=== PATIENT | male | born 1985 | race Caucasian/White ===

== ENCOUNTER 2017-10-01 19:25 | Emergency (ER) | payer BC ==
[2017-10-01] MEDS ORDERED: Diphtheria,Pertussis(Acell),Tetanus Vaccine 0.5 ML SDV IM ONE (19:50)
[2017-10-01] MEDS ORDERED: Bacitracin Oint 15 GM Tube TOP ONE (20:57)
--- NOTE | 2017-10-01 21:02 | EDM.PDOC ---
ED HPI GENERAL MEDICAL PROBLEM - General Chief Complaint: Skin Complaint Stated Complaint: CUT ON FOOT Time Seen by Provider: 10/01/17 20:55 Source of Information: Reports: Patient History Limitations: Reports: No Limitations - History of Present Illness INITIAL COMMENTS - FREE TEXT/NARRATIVE: Patient kicked wooden board during karate practice, sustained skin tear to sole of foot, mild pain, last Td 9-10 yrs ago, able to walk w/o difficulty. Onset: Today Duration: Hour(s): (2) Location: Reports: Lower Extremity, Right Quality: Reports: Other (skin tear) Severity: Mild Improves with: Reports: None Worsens with: Reports: None Context: Reports: Exercise Associated Symptoms: Reports: No Other Symptoms R foot Pain Score (Numeric/FACES): 2 - Related Data Allergies Allergy/AdvReac Type Severity Reaction Status Date / Time No Known Allergies Allergy Verified 10/01/17 19:35 Home Meds: Home Meds NK [No Known Home Meds] 10/01/17 [History] Past Medical History Musculoskeletal History: Reports: Fracture Other Musculoskeletal History: hx R index finger fx - Infectious Disease History Infectious Disease History: Reports: Shingles - Past Surgical History Musculoskeletal Surgical History: Reports: Arthroscopic Knee Other Musculoskeletal Surgeries/Procedures:: L knee scope Social & Family History - Family History Family Medical History: Noncontributory - Tobacco Use Smoking Status *Q: Never Smoker - Caffeine Use Caffeine Use: Reports: Coffee, Tea - Recreational Drug Use Recreational Drug Use: No ED ROS GENERAL - Review of Systems Review Of Systems: See Below Constitutional: Reports: No Symptoms HEENT: Reports: No Symptoms Respiratory: Reports: No Symptoms Cardiovascular: Reports: No Symptoms Endocrine: Reports: No Symptoms GI/Abdominal: Reports: No Symptoms : Reports: No Symptoms Musculoskeletal: Reports: Foot Pain (right, mild) Skin: Reports: Other (skin tear right foot) Neurological: Reports: No Symptoms Psychiatric: Reports: No Symptoms Hematologic/Lymphatic: Reports: No Symptoms Immunologic: Reports: No Symptoms ED EXAM, SKIN/RASH Exam: See Below Exam Limited By: No Limitations General Appearance: Alert, WD/WN, No Apparent Distress Head: Atraumatic, Normocephalic Neck: Full Range of Motion Respiratory/Chest: No Respiratory Distress Cardiovascular: Normal Peripheral Pulses Extremities: Other (non tender right foot) Neurological: Alert, Oriented Psychiatric: Normal Affect, Normal Mood Skin: Other (3cm skin tear plantar aspect right foot overlying 1st MTP joint. Extensive callous formation plantar aspect right foot) Location, Skin: Soles (right foot) Course - Vital Signs Last Recorded V/S: Last Vital Signs Temp 36.8 C 10/01/17 19:30 Pulse 71 10/01/17 19:30 Resp 18 10/01/17 19:30 BP 117/76 10/01/17 19:30 Pulse Ox 98 10/01/17 19:30 - Orders/Labs/Meds Orders: Active Orders 24 hr Category Date Time Status Vaccines to be Administered [RC] PER UNIT ROUTINE Care 10/01/17 19:50 Active Bacitracin [Bacitracin Oint] Med 10/01/17 20:57 Once 0.9 gm TOP ONETIME ONE Medication Orders Bacitracin (Bacitracin Oint) 0.9 gm TOP ONETIME ONE Stop: 10/01/17 20:58 Meds: Medications Generic Name Dose Route Start Last Admin Trade Name Freq PRN Reason Stop Dose Admin Bacitracin 0.9 gm 10/01/17 20:57 Bacitracin Oint TOP 10/01/17 20:58 ONETIME ONE Discontinued Medications Generic Name Dose Route Start Last Admin Trade Name Freq PRN Reason Stop Dose Admin Diphtheria/Tetanus/Acell Pertussis 0.5 ml 10/01/17 19:50 10/01/17 19:58 Adacel IM 10/01/17 19:51 0.5 ml .ONCE ONE Administration Departure - Departure Time of Disposition: 21:02 Disposition: Home, Self-Care 01 Clinical Impression: Tear of skin of plantar aspect of right foot - Discharge Information Instructions: Skin Tear Care, [id number] Referrals: Silvino Garvey MD [Primary Care Provider] - - My Orders Last 24 Hours: My Active Orders 10/01/17 19:50 Vaccines to be Administered [RC] PER UNIT ROUTINE 10/01/17 20:57 Bacitracin [Bacitracin Oint] 0.9 gm TOP ONETIME ONE - Assessment/Plan Last 24 Hours: My Active Orders 10/01/17 19:50 Vaccines to be Administered [RC] PER UNIT ROUTINE 10/01/17 20:57 Bacitracin [Bacitracin Oint] 0.9 gm TOP ONETIME ONE
== END 2017-10-01 21:02 | disposition home or self-care (01) ==
LOC: FB.ED 19:25
DX: S91.311A Laceration without foreign body, right foot, initial encounter (principal); L84 Corns and callosities; Z23 Encounter for immunization; W22.8XXA Striking against or struck by other objects, initial encounter; Y93.75 Activity, martial arts
CPT/HCPCS: 90471; 90715; 99282; A9270-GY